=== PATIENT | male | born 2000 | race American Indian/Alaskan Native ===

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

== ENCOUNTER 2021-01-15 02:44 | Emergency (ER) | payer OTHER ==
[~2021-01-15] VITALS: Ht 180.3 cm; Wt 82.0 kg
== END 2021-01-15 03:23 | disposition home or self-care (01) ==
LOC: ED 02:44
DX: S63.285A Dislocation of proximal interphalangeal joint of left ring finger, initial encounter (principal); W22.8XXA Striking against or struck by other objects, initial encounter; Y93.72 Activity, wrestling
CPT/HCPCS: 26770; 73140; 99283-25

== ENCOUNTER 2024-09-05 03:40 | Emergency (ER) | payer OTHER ==
[~2024-09-05] VITALS: Ht 180.3 cm; Wt 77.6 kg
[2024-09-05] MEDS ORDERED: LIDOCAINE & ANTACID 35 ML BTL PO ONE (04:15)
[2024-09-05] MEDS ORDERED: PRILOSEC OTC20 MG PO (04:17)
[2024-09-05 04:29] VITALS: BP 150/116
== END 2024-09-05 04:30 | disposition home or self-care (01) ==
LOC: ED 03:40
DX: T18.128A Food in esophagus causing other injury, initial encounter (principal); W44.F3XA Food entering into or through a natural orifice, initial encounter
CPT/HCPCS: 99283